=== PATIENT | female | born 1950 | race Hispanic/Latino ===

== ENCOUNTER 2018-07-23 07:53 | Outpatient (CLI) | payer BC | END 2018-07-23 07:54 | disposition home or self-care (01) | LOC: BICMAMMO 07:53 | PROVIDERS: ATTEND Obstetrics & Gynecology | DX: Z12.31 Encounter for screening mammogram for malignant neoplasm of breast (principal); Z80.3 Family history of malignant neoplasm of breast | CPT/HCPCS: 77063; 77067 ==

== ENCOUNTER 2018-11-08 10:48 | Observation (INO) | payer BC, MEDICARE ==
[2018-11-08 11:18] LABS: #Lymphocytes 1.2 thou/uL (1.20-3.40); #Monocytes 0.5 thou/uL (0.11-0.59); #Neutrophils 2.6 thou/uL (1.40-6.50); %Basophils 0.4 % (0.0-1.0); %Eosinophils 0.2 % (0.0-10.0); %Lymphocytes 28.7 % (21.0-51.0); %Monocytes 10.8 % (0.0-10.0); %Neutrophils 59.8 % (42.0-75.0); Hemoglobin 12.9 g/dL (12.0-16.0); Mean Corpuscular HGB CONC 32.7 g/dL (32.0-36.0); Mean Corpuscular Hemoglobin 29.7 pg (27.0-31.0); Mean Corpuscular Volume 90.9 fL (78.0-98.0); Mean Platelet Volume 8.9 fL (7.4-10.4); Platelet Count 141 thou/uL (130-400); RBC Distribution Width 12.5 % (11.5-14.5); Red Blood Cell (RBC) Count 4.35 mill/uL (4.20-5.40); White Blood Cell (WBC) Count 4.3 thou/uL (4.8-10.8)
--- NOTE | 2018-11-08 11:32 | RAD ---
SINGLE VIEW CHEST: Date: 11/08/18 COMPARISON: None. HISTORY: Chest pain and mid sternal back pain. FINDINGS: Single view of the chest shows a normal sized cardiomediastinal silhouette. There is no evidence of c onsolidation, mass, or pleural effusion. The bones are unremarkable. Cholecystectomy clips are seen i n the right upper quadrant of the abdomen. IMPRESSION: No evidence of acute cardiopulmonary disease. POS: H
[2018-11-08 11:41] LABS: ALT (SGPT) 20 U/L (8-55); AST (SGOT) 19 U/L (5-34); Albumin 4.5 g/dL (3.4-4.8); Alkaline Phosphatase 76 U/L (40-150); Anion Gap 13 mmol/L (10-20); BUN (Urea Nitrogen) 22 mg/dL (9.8-20.1); Bilirubin, Total 0.5 mg/dL (0.2-1.2); CK (CPK) 89 U/L (29-168); Calc. Creatinine Clearance 0 mL/min (70-130); Calcium 9.6 mg/dL (7.8-10.44); Carbon Dioxide 23 mmol/L (23-31); Chloride 107 mmol/L (98-107); Estimated GFR-MDRD 66; Globulin 2.7 g/dL (2.4-3.5); Glucose 104 mg/dL (80-115); Lipase 55 U/L (8-78); Potassium 3.9 mmol/L (3.5-5.1); Protein, Total 7.2 g/dL (6.0-8.3); Sodium 139 mmol/L (136-145)
[2018-11-08] MEDS ORDERED: Nitroglycerin 0.4 MG TAB (25 Tab Bottle) ONE (12:09)
[2018-11-08 17:13] VITALS: BMI 23.8
[2018-11-08] MEDS ORDERED: Ondansetron ODT 4 MG TAB PO PRN (17:28)
[2018-11-08] MEDS ORDERED: Zolpidem Tartrate 5 MG TAB PO PRN (17:28)
[2018-11-08] MEDS ORDERED: Acetaminophen 325 MG TAB PO PRN (17:28)
--- NOTE | 2018-11-08 23:54 | HP ---
HISTORY OF PRESENT ILLNESS: The patient is a 68-year-old female with no prior history of atherosclerotic coronary artery disease, presented to the emergency room complaining of left-sided chest pain. She was seen in Urgent Care and transferred to the ER. She reportedly receiving an aspirin and nitroglycerin with some positive results reducing her chest pain. She did have chest pain noted this morning seem to be centered in the midsternal area. No associated radiation of pain. She did note some slight shortness of breath, feeling lightheaded and dizzy. As noted, she has no prior history of atherosclerotic coronary artery disease. She was seen and evaluated in the ER. The EKG did not reveal any acute changes and initial cardiac enzymes were normal. She was subsequently admitted to the hospital. She denies any nausea, vomiting, or diarrhea. No productive cough associated with this. No fever has been noted. At the current time, she notes her symptoms are 99% resolved. Otherwise, no other medical complaints are noted. ALLERGIES: SHE IS ALLERGIC TO LEVAQUIN AND PENICILLIN. PAST MEDICAL HISTORY: Surgical is positive for appendectomy and hysterectomy. Medical history is, otherwise, negative for atherosclerotic coronary artery disease, renal disease, diabetes, thyroid condition, pulmonary disease. SOCIAL AND PERSONAL HISTORY: She currently works. She does not smoke nor does she drink alcohol. FAMILY HISTORY: Slightly positive for atherosclerotic coronary artery disease in her father, but he was fairly elderly, otherwise family history is negative. REVIEW OF SYSTEMS: GI: Negative. : Negative. CARDIOVASCULAR: Positive as above. RESPIRATORY: Positive for above. NEUROLOGICAL: Otherwise negative. PHYSICAL EXAMINATION: VITAL SIGNS: Temperature 98.2, BP 175/84, pulse 64, respirations 20, O2 sats 96%. GENERAL: She is alert, active and in no acute distress. HEENT: Normocephalic, atraumatic. Extraocular muscles intact. Sclerae and conjunctivae clear. NECK: Supple. Full range of motion. No masses. No bruits auscultated. Thyroid, there is thyromegaly. No evidence of masses or lesions otherwise noted. LUNGS: Clear. HEART: Reveals a regular rate and rhythm without murmurs, gallops, or rubs. ABDOMEN: Soft and nontender. Bowel sounds are present and active. There is no hepatosplenomegaly noted. NEUROLOGIC: She is alert and oriented x3. Cranial nerves appear to be intact. Motor and sensory exam appears to be intact throughout the upper and lower extremities. LABORATORY DATA: Her white blood count is 4.3, hemoglobin 12.9, hematocrit 39.5. Sodium 139, potassium 3.9, chloride 107, CO2 of 23, BUN 22, creatinine 0.6. Troponin x2 are negative. Chest x-ray is clear. IMPRESSION: A 68-year-old female with onset of left-sided chest pain consistent with possible angina, although does not have other significant findings compatible with that. PLAN: The patient will be observed overnight. Serial cardiac enzymes were done and stress test has been ordered. Job ID: [id number]
[2018-11-09 08:07] VITALS: TEMP 98
[2018-11-09] MEDS ORDERED: ADENOSINE 60 MG/20 ML VIAL ONE (09:52)
--- NOTE | 2018-11-09 11:23 | PRG ---
DATE OF SERVICE: 11/09/2018 SUBJECTIVE: Ms. Davidson is resting well. She has had no further chest pain. OBJECTIVE: VITAL SIGNS: Temperature 98.6, blood pressure 130/65, pulse 52. LUNGS: Clear. HEART: Reveals a regular rate and rhythm. No murmurs, gallops, or rubs. LABORATORY DATA: All troponins are normal. IMPRESSION: Chest pain, rule out angina. PLAN: Stress test today. Job ID: [id number]
[2018-11-09 11:54] VITALS: BP 132/62
--- NOTE | 2018-11-09 12:47 | NM ---
NUCLEAR MEDICINE MYOCARDIAL PERFUSION SCAN: 11/09/2018 HISTORY: Chest pain. COMPARISON: None. TECHNIQUE: SPECT imaging of the left ventricular myocardium is obtained during rest and stress, following the in travenous administration of 10.8 and 32 millicuries of technetium 99m labeled sestamibi. FINDINGS: No fixed or reversible defect is noted. TID is 0.81. Wall motion appears normal. EDV is 35 mL and ESV is 5 mL, for an ejection fraction of 86%. IMPRESSION: No fixed or reversible defect. Wall motion and ejection fraction appear within normal limits. POS: KERON
--- NOTE | 2018-11-10 04:17 | DIS ---
DATE OF ADMISSION: 11/08/2018 DATE OF DISCHARGE: 11/09/2018 DISCHARGE SUMMARY: The patient is a 68-year-old female, admitted with chest pain. She underwent rule-out [place] protocol which was negative. She underwent cardiac stress testing, which showed no evidence of any atherosclerotic coronary artery disease. Stress test is, otherwise, negative. She was able to be discharged home to follow up with me on a p.r.n. basis. Job ID: [id number]
== END 2018-11-09 12:53 | disposition home or self-care (01) ==
LOC: ERS 10:48 → ERHOLD 13:41 → 2SW 16:39
PROVIDERS: ADMIT Family Medicine; ATTEND Family Medicine
DX: R07.2 Precordial pain (principal); Z88.0 Allergy status to penicillin; Z88.1 Allergy status to other antibiotic agents
CPT/HCPCS: 36415; 71045; 78452; 80053; 82550; 83690; 84484; 85025; 93005; 93017; 94760; A9500; G0378; J0153

== ENCOUNTER 2019-01-04 01:16 | Outpatient (CLI) | payer BC ==
[2019-01-04 14:08] LABS: #Lymphocytes 0.8 thou/uL (1.20-3.40); #Monocytes 0.6 thou/uL (0.11-0.59); #Neutrophils 5.7 thou/uL (1.40-6.50); %Basophils 0.1 % (0.0-1.0); %Lymphocytes 10.6 % (21.0-51.0); %Monocytes 8.4 % (0.0-10.0); %Neutrophils 80.9 % (42.0-75.0); Hemoglobin 13.5 g/dL (12.0-16.0); Mean Corpuscular HGB CONC 33.2 g/dL (32.0-36.0); Mean Corpuscular Hemoglobin 30.7 pg (27.0-31.0); Mean Corpuscular Volume 92.6 fL (78.0-98.0); Mean Platelet Volume 9.4 fL (7.4-10.4); Platelet Count 137 thou/uL (130-400); RBC Distribution Width 12.4 % (11.5-14.5); Red Blood Cell (RBC) Count 4.39 mill/uL (4.20-5.40); White Blood Cell (WBC) Count 7.1 thou/uL (4.8-10.8)
[2019-01-04 14:21] LABS: Anion Gap 12 mmol/L (10-20); BUN (Urea Nitrogen) 19 mg/dL (9.8-20.1); Calc. Creatinine Clearance 0 mL/min (70-130); Calcium 9.7 mg/dL (7.8-10.44); Carbon Dioxide 25 mmol/L (23-31); Chloride 106 mmol/L (98-107); Estimated GFR-MDRD 46; Glucose 97 mg/dL (80-115); Potassium 3.9 mmol/L (3.5-5.1); Sodium 139 mmol/L (136-145)
== END 2019-01-04 01:17 | disposition home or self-care (01) ==
LOC: LABBT 01:16
PROVIDERS: ATTEND Orthopaedic Surgery
DX: Z01.812 Encounter for preprocedural laboratory examination (principal); S52.532A Colles' fracture of left radius, initial encounter for closed fracture
CPT/HCPCS: 80048; 85025

== ENCOUNTER 2019-01-07 07:20 | Day surgery (SDC) | payer BC ==
[2019-01-04 14:19] VITALS: BMI 23.6
[2019-01-07] MEDS ORDERED: Midazolam HCl 2 mg/2 ml Vial ONE (07:49)
[2019-01-07] MEDS ORDERED: Fentanyl 100 MCG/2 ML VIAL ONE (07:50)
[2019-01-07] MEDS ORDERED: Scopolamine 1.5 mg/72 hour Patch ONE (08:15)
[2019-01-07] MEDS ORDERED: traMADol HCl 50 MG TAB PO PRN ×2 (08:57)
[2019-01-07] MEDS ORDERED: Ropivacaine 0.2% 550 ML 550 ML NERVE BLCK SCH (08:57)
[2019-01-07] MEDS ORDERED: Fentanyl 100 MCG/2 ML VIAL IV PRN (08:57)
[2019-01-07] MEDS ORDERED: HYDROcodone/Acetaminophen 10/325 mg Tablet PO PRN ×2 (08:57)
[2019-01-07] MEDS ORDERED: Ondansetron PF 4 MG/2 ML Vial IVP PRN (08:57)
[2019-01-07] MEDS ORDERED: Zolpidem Tartrate 5 MG TAB PO PRN (08:57)
[2019-01-07] MEDS ORDERED: Promethazine HCl 25 MG/ML VIAL IM PRN (08:57)
[2019-01-07] MEDS ORDERED: Clindamycin/D5W 900 mg/50 ml Premix Bag ONE (09:04)
[2019-01-07] MEDS ORDERED: Meperidine HCl/PF 25 MG/ML VIAL ONE (11:18)
--- NOTE | 2019-01-07 13:08 | OP ---
DATE OF PROCEDURE: 01/07/2019 PREOPERATIVE DIAGNOSIS: Left distal intra-articular radius fracture. POSTOPERATIVE DIAGNOSIS: Left distal intra-articular radius fracture. PROCEDURE PERFORMED: Open reduction and internal fixation of left intra-articular distal radius fracture. SENIOR DRAFTER: Bud Galaviz PA-C ESTIMATED BLOOD LOSS: Minimal. SPECIMENS: None. DRAINS: None. COMPLICATION: None. DESCRIPTION OF PROCEDURE: The patient was taken to the operating room, where general anesthesia was induced. Left arm was prepped and draped in a sterile fashion. After exsanguination, tourniquet was inflated to 250 mmHg. I made an FCR tendon approach to the distal radius. Dissection was carried down to the fracture. The fracture was exposed anatomically and reduced as near as anatomical as possible. She did have some bony compression. I placed a Synthes plate on the volar surface and checked it under biplanar fluoroscopy. Screws were drilled and inserted in the usual fashion, used 4 distal locking screws and 2 proximal bone screws. Tourniquet was released, irrigation was performed. Hemostasis was obtained. Subcutaneous tissue was closed with 2-0 Vicryl and skin was closed with tyra and a sterile dressing was applied. Job ID: [id number]
[2019-01-07] MEDS ORDERED: Ropivacaine 0.5% HCl/PF (150 MG/30 ML VIAL) ONE (13:59)
[2019-01-07] MEDS ORDERED: Ropivacaine 0.2% HCl/PF (40 MG/20 ML VIAL) ONE (13:59)
[2019-01-07] MEDS ORDERED: Ketorolac Tromethamine 30 MG/ML VIAL ONE (14:22)
[2019-01-07] MEDS ORDERED: Ondansetron PF 4 MG/2 ML Vial ONE (14:22)
[2019-01-07] MEDS ORDERED: PROPOFOL 200 MG/20 ML VIAL ONE (14:22)
[2019-01-07] MEDS ORDERED: PHENYLEPHRINE-NS 100 MCG/ML 10 ML SYRINGE ONE (14:22)
[2019-01-07] MEDS ORDERED: Lidocaine 1% PF 5 ML VIAL ONE (14:22)
--- NOTE | 2019-01-07 15:14 | RAD ---
RADIOGRAPH LEFT WRIST 2 VIEWS: Date: 01/07/19 HISTORY: 68-year-old female with acute, traumatic left distal radial metaphyseal fracture. COMPARISON: None available. FINDINGS: Small field of view fluoroscopic spot images obtained with C-arm, with intrinsically low resolution. There is a fracture of the distal radial metaphysis, with minimal displacement, but no significant an gulation. There are anterior metallic plate fixated to distal epiphysis and distal metadiaphysis with screws. IMPRESSION: Status post open reduction and internal fixation of acute, traumatic, displaced distal radial metaphy seal fracture. POS: TPC
== END 2019-01-07 13:50 | disposition home or self-care (01) ==
LOC: SDC 07:20
PROVIDERS: ATTEND Orthopaedic Surgery
PROC: 0PSJ04Z Reposition Left Radius with Internal Fixation Device, Open Approach (ICD-10-PCS; principal; 2019-01-07)
DX: S52.572A Other intraarticular fracture of lower end of left radius, initial encounter for closed fracture (principal); Z90.49 Acquired absence of other specified parts of digestive tract; Z90.710 Acquired absence of both cervix and uterus; Z91.09 Other allergy status, other than to drugs and biological substances; Z88.1 Allergy status to other antibiotic agents; Z88.8 Allergy status to other drugs, medicaments and biological substances; Z88.0 Allergy status to penicillin; Z98.890 Other specified postprocedural states; Y93.41 Activity, dancing
CPT/HCPCS: 76000; A4306; C1713; J1885; J2001; J2175; J2250; J2405; J2704; J2795; J3010; J3490

== ENCOUNTER 2019-07-20 14:29 | Outpatient (CLI) | payer BC ==
--- NOTE | 2019-07-20 15:10 | ULT ---
Exam: Bilateral renal ultrasound HISTORY: History of chronic kidney disease COMPARISON: None FINDINGS: Right kidney: No focal renal lesion or hydronephrosis is demonstrated. The right renal cortical thick ness is 0.94 cm. Right kidney measurements: The right kidney measured 8.1 x 4.3 x 4.4 cm. Left kidney: The left renal cortical thickness was 1 cm. No focal renal lesion or hydronephrosis is s een. Left kidney measurements: The left kidney measured 8.1 x 4.3 x 4.2 cm. Urinary bladder: Left ureteral jet was seen. The right ureteral jet was not well demonstrated. The pr evoid bladder volume was 62.5 cc. Incidental note is made of a heterogeneous appearance of the visualized aspects of the liver. IMPRESSION: 1. Mild renal cortical thinning bilaterally. No focal renal lesion. 2. Heterogeneous appearance of the liver may reflect changes of fatty infiltration. Dedicated right u pper quadrant ultrasound may be helpful for additional characterization.
== END 2019-07-20 14:30 | disposition home or self-care (01) ==
LOC: BICULT 14:29
PROVIDERS: ATTEND Internal Medicine Nephrology
DX: N18.3 Chronic kidney disease, stage 3 (moderate) (principal); N28.89 Other specified disorders of kidney and ureter
CPT/HCPCS: 76770

== ENCOUNTER 2019-07-26 16:16 | Outpatient (CLI) | payer BC ==
--- NOTE | 2019-07-26 16:53 | MMO ---
Bilateral MAMMO Bilat Screen [facility]DI[facility]STEF. CLINICAL HISTORY: Patient is 69 years old and is seen for screening. The patient has a history of right Stereotatic Biopsy in MARCH 2003 - BENIGN. VIEWS: The views performed were: . FILMS COMPARED: The present examination has been compared to prior imaging studies performed at [facility] on 09/05/2003, 10/29/2004, 10/30/2005 and 07/23/2018. This study has been interpreted with the assistance of computer-aided detection. MAMMOGRAM FINDINGS: There are scattered fibroglandular densities. Finding 1: There are stable benign appearing calcifications seen in both breasts. Finding 2: There is a stable biopsy clip seen in the right breast. There are no suspicious masses, suspicious calcifications, or new areas of architectural distortion. IMPRESSION: THERE IS NO MAMMOGRAPHIC EVIDENCE OF MALIGNANCY. A ROUTINE FOLLOW-UP MAMMOGRAM IN 1 YEAR IS RECOMMENDED. THE RESULTS OF THIS EXAM WERE SENT TO THE PATIENT. ACR BI-RADS Category 2 - Benign finding MAMMOGRAPHY NOTE: 1. A negative mammogram report should not delay a biopsy if a dominant of clinically suspicious mass is present. 2. Approximately 10% to 15% of breast cancers are not detected by mammography. 3. Adenosis and dense breasts may obscure an underlying neoplasm. Reported by: DIMITRY RAMSEY MD Electonically Signed: [id number]
== END 2019-07-26 16:17 | disposition home or self-care (01) ==
LOC: BICMAMMO 16:16
PROVIDERS: ATTEND Obstetrics & Gynecology
DX: Z12.31 Encounter for screening mammogram for malignant neoplasm of breast (principal); Z91.89 Other specified personal risk factors, not elsewhere classified
CPT/HCPCS: 77063; 77067

== ENCOUNTER 2019-10-18 08:09 | Outpatient (CLI) | payer BC ==
--- NOTE | 2019-10-18 09:19 | RAD ---
THORACIC SPINE SERIES TWO VIEWS: HISTORY: Back pain. Age related osteoporosis. FINDINGS: Vertebral bodies maintain normal height. There are some small osteophytes present. Pedicles are intac t. IMPRESSION: Mild arthritic changes of the spine. POS: TPC
== END 2019-10-18 08:10 | disposition home or self-care (01) ==
LOC: BICRAD 08:09
PROVIDERS: ATTEND Internal Medicine Rheumatology
DX: M81.0 Age-related osteoporosis without current pathological fracture (principal); M46.94 Unspecified inflammatory spondylopathy, thoracic region
CPT/HCPCS: 72070

== ENCOUNTER 2020-07-30 08:14 | Outpatient (CLI) | payer BC ==
--- NOTE | 2020-07-30 09:17 | MMO ---
Bilateral MAMMO Bilat Screen DDI+STEF. CLINICAL HISTORY: Patient is 70 years old and is seen for screening. The patient has no personal history of cancer. The patient has a history of right Stereotatic Biopsy in MARCH 2003 - BENIGN. VIEWS: The views performed were: bilateral craniocaudal with tomosynthesis and bilateral mediolateral oblique with tomosynthesis. FILMS COMPARED: The present examination has been compared to prior imaging studies performed at [facility] on 10/29/2004, 10/30/2005, 07/23/2018 and 07/26/2019. This study has been interpreted with the assistance of computer-aided detection. MAMMOGRAM FINDINGS: There are scattered fibroglandular densities. There are benign appearing calcifications seen in the right breast. Right biopsy clip. There are no suspicious masses, suspicious calcifications, or new areas of architectural distortion. IMPRESSION: THERE IS NO MAMMOGRAPHIC EVIDENCE OF MALIGNANCY. A ROUTINE FOLLOW-UP MAMMOGRAM IN 1 YEAR IS RECOMMENDED. THE RESULTS OF THIS EXAM WERE SENT TO THE PATIENT. ACR BI-RADS Category 2 - Benign finding MAMMOGRAPHY NOTE: 1. A negative mammogram report should not delay a biopsy if a dominant of clinically suspicious mass is present. 2. Approximately 10% to 15% of breast cancers are not detected by mammography. 3. Adenosis and dense breasts may obscure an underlying neoplasm. Reported by: JULIET HAY MD Electonically Signed: [id number]
== END 2020-07-30 08:15 | disposition home or self-care (01) ==
LOC: BICMAMMO 08:14
PROVIDERS: ATTEND Obstetrics & Gynecology
DX: Z12.31 Encounter for screening mammogram for malignant neoplasm of breast (principal); Z91.89 Other specified personal risk factors, not elsewhere classified
CPT/HCPCS: 77063; 77067

== ENCOUNTER 2021-04-05 07:36 | Outpatient (CLI) | payer BC | END 2021-04-05 07:37 | disposition home or self-care (01) | LOC: NM 07:36 | PROVIDERS: ATTEND Physician Assistant Medical | DX: R10.13 Epigastric pain (principal); R19.7 Diarrhea, unspecified; K30 Functional dyspepsia | CPT/HCPCS: 78264; A9541 ==

== ENCOUNTER 2021-08-07 08:11 | Outpatient (CLI) | payer BC | END 2021-08-07 08:12 | disposition home or self-care (01) | LOC: BICMAMMO 08:11 | PROVIDERS: ATTEND Obstetrics & Gynecology | DX: Z12.31 Encounter for screening mammogram for malignant neoplasm of breast (principal) | CPT/HCPCS: 77063; 77067 ==

== ENCOUNTER 2021-10-10 08:31 | Outpatient (CLI) | payer BC | END 2021-10-10 08:32 | disposition home or self-care (01) | LOC: BICULT 08:31 | PROVIDERS: ATTEND Physician Assistant Medical | DX: R10.13 Epigastric pain (principal); R93.3 Abnormal findings on diagnostic imaging of other parts of digestive tract; N28.1 Cyst of kidney, acquired; Z86.010 Personal history of colon polyps | CPT/HCPCS: 76770 ==

== ENCOUNTER 2022-08-11 13:17 | Outpatient (CLI) | payer BC | END 2022-08-11 13:18 | disposition home or self-care (01) | LOC: BICMAMMO 13:17 | PROVIDERS: ATTEND Obstetrics & Gynecology | DX: Z12.31 Encounter for screening mammogram for malignant neoplasm of breast (principal); Z91.89 Other specified personal risk factors, not elsewhere classified | CPT/HCPCS: 77063; 77067 ==

== ENCOUNTER 2023-03-09 08:23 | Outpatient (CLI) | payer BC | END 2023-03-09 08:24 | disposition home or self-care (01) | LOC: BICMAMMO 08:23 | PROVIDERS: ATTEND Obstetrics & Gynecology | DX: Z13.820 Encounter for screening for osteoporosis (principal); M85.80 Other specified disorders of bone density and structure, unspecified site | CPT/HCPCS: 77080 ==

== ENCOUNTER 2023-08-26 08:38 | Outpatient (CLI) | payer BC | END 2023-08-26 08:39 | disposition home or self-care (01) | LOC: BICMAMMO 08:38 | PROVIDERS: ATTEND Obstetrics & Gynecology | DX: Z12.31 Encounter for screening mammogram for malignant neoplasm of breast (principal); Z91.89 Other specified personal risk factors, not elsewhere classified | CPT/HCPCS: 77063; 77067 ==

== ENCOUNTER 2024-03-08 07:36 | Outpatient (CLI) | payer BC | END 2024-03-08 07:37 | disposition home or self-care (01) | LOC: BICMRI 07:36 | PROVIDERS: ATTEND Surgery | DX: M51.36 Other intervertebral disc degeneration, lumbar region (principal); M47.816 Spondylosis without myelopathy or radiculopathy, lumbar region; M51.26 Other intervertebral disc displacement, lumbar region; M51.27 Other intervertebral disc displacement, lumbosacral region | CPT/HCPCS: 72120; 72148 ==

== ENCOUNTER 2024-08-30 12:52 | Outpatient (CLI) | payer MEDICARE | END 2024-08-30 12:53 | disposition home or self-care (01) | LOC: BICMAMMO 12:52 | PROVIDERS: ATTEND Obstetrics & Gynecology | DX: Z12.31 Encounter for screening mammogram for malignant neoplasm of breast (principal); Z91.89 Other specified personal risk factors, not elsewhere classified | CPT/HCPCS: 77063; 77067 ==

== ENCOUNTER 2025-08-31 10:47 | Outpatient (CLI) | payer MEDICARE | END 2025-08-31 10:48 | disposition home or self-care (01) | LOC: BICMAMMO 10:47 | PROVIDERS: ATTEND Obstetrics & Gynecology | DX: Z12.31 Encounter for screening mammogram for malignant neoplasm of breast (principal); Z91.89 Other specified personal risk factors, not elsewhere classified | CPT/HCPCS: 77063; 77067 ==

== ENCOUNTER 2025-10-19 10:07 | Outpatient (CLI) | payer MEDICARE ==
[2025-10-19 10:53] LABS: Estimated GFR - POC 48.0
[2025-10-19] MEDS ORDERED: Iopamidol 370 76% 100 ML VIAL ONE (12:00)
== END 2025-10-19 10:08 | disposition home or self-care (01) ==
LOC: CT 10:07
PROVIDERS: ATTEND Internal Medicine Hematology & Oncology
DX: D72.818 Other decreased white blood cell count (principal); R16.0 Hepatomegaly, not elsewhere classified; K57.30 Diverticulosis of large intestine without perforation or abscess without bleeding; Z79.899 Other long term (current) drug therapy
CPT/HCPCS: 36415; 74177; 82565